=== PATIENT | female | born 1990 | race Caucasian/White ===

== ENCOUNTER 2019-02-13 08:47 | Inpatient (IN) | payer OTHER ==
[~2019-02-13] VITALS: Ht 167.6 cm; Wt 73.8 kg
[2019-02-13] VITALS (26 sets, daily range): BP systolic 95–132; BP diastolic 50–80
[2019-02-13] MEDS ORDERED: PRENTAB9 PO (09:10)
[2019-02-13] MEDS ORDERED: LR 1,000 ML IV SCH (10:22)
[2019-02-13] MEDS ORDERED: LACTATED RINGER'S 1000 ML IV STA (10:22)
--- NOTE | 2019-02-13 10:32 | HPEPDOC ---
Obstetrical History & Physical General Date of Admission Feb 13, 2019 at 10:21 History of Present Illness 28 y/o at 40+3 with painful irreg ctx's and VB since last night. Has been mucousy. Not overly heavy. No lof. Pos FM. Transferred here from [facility] at 31 weeks. 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 pertinent history Past Medical History Medical History denies Surgical History: Denies/None Family History Significant Family History: No pertinent family hx Social History Marital Status: Family situation: Spouse/partner home Psychosocial History: No pertinent psych hx * Smoker: non-smoker Alcohol: Denies Drugs: denies Abuse Violence Screening Have you been hit/kicked/slapp: No Have you been sexually assault: No Imunizations Tdap status: current Influenza Status: current Allergies Coded Allergies: No Known Allergies (Unverified , 02/13/19) Medications Scheduled No.137/Iron/Folic Acd ( Vitamin Tablet) 1 Each Tablet, 1 TAB PO DAILY Physical Examination Physical Examination GENERAL: Alert and oriented times three. ABDOMEN: Gravid and non-tender to touch. FETUS: Is vertex (VTX) by sterile vaginal examination (SVE), 3-4/90/-1/vtx well applied EXTREMITIES: No edema. Vital Signs/I&O Vital Signs Date Time Temp Pulse Resp B/P (MAP) Pulse Ox O2 Delivery O2 Flow Rate FiO2 02/13/19 09:06 98.4 89 18 112/79 (90) Laboratory Data Urine Culture: Contaminated Pertinent Laboratoy Data Blood Type: A+ RBC Antibody Screen: Negative HIV: Negative Hepatitis B: Negative Hepatitis C: Unknown Rapid Plasma Reagin: Nonreactive Rubella: Immune Varicella: Immune Chlamydia/Gonorrhea: Negative Group B Streptococcus: Negative Quad Screen Test: Unknown Cystic Fibrosis: Negative Glucose Tolerance Test: 138 Anatomy Ultrasound Placenta Location: Posterior Normal Anatomy: Yes Placenta Previa: No Assessment Variability: Moderate Accelerations: Positive Decelerations: Late (x1, was on her back. None before and none after. Pos accels and mod katie present throughout.) Tocometer Contractions: Yes Frequency: irregular, every 3-7 min. Duration: greater than 60 seconds Strength: palpated as moderate Assessment/Plan Assessment 40+3. very likely labor as was 1/thick 2 days ago. Bloody show present. Will keep and check in ~4 hrs and if no change or ctx'd don't become more regular may need pitocin augmentation. Plan Admit and orient. 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 Diet: clears except will allow lunch today Group B Streptococcus (GBS) negative Labs and intravenous (IV) per unit protocol. Counseled on Pitocin and induction of labor (IOL). Lactated Ringers (LR): Bolus 1000 mL, then at 125 mL/hr. Anticipate normal spontaneous delivery () C-S as appropriate. Sessions SESSIONS,NATALY Rosales MD Feb 13, 2019 10:32
[2019-02-13 11:37] LABS: HEMATOCRIT 37.3 % (36.0-47.0); HEMOGLOBIN 12.7 g/dl (12.0-15.5); MEAN CORPUSCULAR HEMOGLOBIN 30.7 pg (27.0-33.0); MEAN CORPUSCULAR VOLUME 90.1 fl (80.0-96.0); PLATELET COUNT, AUTOMATED 278 10^3/uL (150-450); RED BLOOD COUNT 4.14 10^6/uL (4.00-5.40); WHITE BLOOD COUNT 9.2 10^3/uL (4.0-10.0)
[2019-02-13] MEDS ORDERED: FENTANYL 2MCG/ML ROPIVACAINE 0.2% IN 0.9% NACL 100ML IVBAG As Ordered ONE (15:37)
[2019-02-13] MEDS ORDERED: EPIDURAL COMMENT XX SCH (17:30)
[2019-02-13] MEDS ORDERED: FENTANYL/ROPIVACAINE/NACL BAG 100 ML EPIDURAL SCH (17:30)
[2019-02-13] MEDS ORDERED: ONDANSETRON 4MG/2ML VIAL (J2405) IV PRN (17:30)
[2019-02-13] MEDS ORDERED: ePHEDrine SULFATE 25 MG/5 ML(5MG/ML) SYRINGE IV PRN (17:30)
[2019-02-13] MEDS ORDERED: NALOXONE INJ 0.4 MG/1 ML VIAL (J2310) IV PRN (17:30)
[2019-02-13] MEDS ORDERED: REFRIGERATOR IV KEYS XX PRN (17:30)
[2019-02-13] MEDS ORDERED: EPIDURAL/PCA KEYS XX PRN (17:30)
[2019-02-13] MEDS ORDERED: diphenhydrAMINE INJ 50MG/ML VIAL (J1200) IV PRN (17:30)
[2019-02-13] MEDS ORDERED: OXYTOCIN 30 UNITS IN 0.9% NaCl 500ML IV BAG (J2590) As Ordered ONE (19:26)
--- NOTE | 2019-02-13 19:37 | IPNPDOC ---
Text Note Date of Service The patient was seen on 02/13/19. NOTE I have been getting reg reports all day, at 1700 was 4-5 cm per RN, 1800 had SROM, clr. Cx c/c/+2/ANUJ, start pushing FHT Cat 1 Sessions VS,Ximena, I+O VS, Ximena, I+O Laboratory Tests 02/13/19 11:12 Red Blood Count 4.14, Mean Corpuscular Volume 90.1, Mean Corpuscular Hemoglobin 30.7, Mean Corpuscular Hemoglobin Concent 34.0, Red Cell Distribution Width 13.4 Vital Signs Date Time Temp Pulse Resp B/P (MAP) Pulse Ox O2 Delivery O2 Flow Rate FiO2 02/13/19 18:26 92 113/65 (81) 02/13/19 17:38 98.8 18 02/13/19 12:10 98 SESSIONS,NATALY Rosales MD Feb 13, 2019 19:37
[2019-02-13] MEDS ORDERED: OXYTOCIN DRIP 30 UNITS in APPROPRIATE DILUENT 1 EA IV SCH (20:29)
[2019-02-13] MEDS ORDERED: MEASLES,MUMPS,RUBELLA VACCINE INJ (MMR-II) (90707) SC SCH (20:30)
[2019-02-13] MEDS ORDERED: RHOGAM 300 MCG (1500 IU) INJ (J2790) IM SCH (20:30)
[2019-02-13] MEDS ORDERED: METOCLOPRAMIDE INJ 10MG/2ML VIAL (J2765) IV PRN (20:30)
[2019-02-13] MEDS ORDERED: ACETAMINOPHEN TAB 650MG DOSE (2X325MG) PO PRN (20:30)
[2019-02-13] MEDS ORDERED: DIBUCAINE 1% OINTMENT 30GM TOP PRN (20:30)
[2019-02-13] MEDS: DOCUSATE SODIUM 100 MG CAP PO SCH (22:30)
[2019-02-14 05:14] VITALS: BP 106/57
--- NOTE | 2019-02-14 06:49 | IPNPDOC ---
Text Note Date of Service The patient was seen on 02/14/19. NOTE PPD1 States feeling well, pain controlled with prescribed meds. Baby bonding and feeding well. No heavy VB. Lochia slowing. Ambulatory. Tolerating PO without issues. Voiding spont. No CP/LP/SOB. VSSAF NAD A&O LE no C/C/E Ut at U-2, firm a/p: Doing well. Cont routine care. D/C today. Sessions Ximena PETERSEN, I+O VSXimena I+O Laboratory Tests 02/13/19 11:12 Red Blood Count 4.14, Mean Corpuscular Volume 90.1, Mean Corpuscular Hemoglobin 30.7, Mean Corpuscular Hemoglobin Concent 34.0, Red Cell Distribution Width 13.4 Vital Signs Date Time Temp Pulse Resp B/P (MAP) Pulse Ox O2 Delivery O2 Flow Rate FiO2 02/14/19 05:14 98.7 82 18 106/57 (73) 02/13/19 22:37 99 I&O- Last 24 Hours up to 6 AM 02/14/19 06:00 Intake Total 1900 ml Output Total 650 ml Balance 1250 ml SESSIONS,NATALY Rosales MD Feb 14, 2019 06:49
[2019-02-14] MEDS: DOCUSATE SODIUM 100 MG CAP PO SCH ×2 (08:55→20:09)
[2019-02-14] MEDS: PRENATAL VITAMINS CHEWABLE TABLET PO SCH (08:55)
[2019-02-14] MEDS: IBUPROFEN 800 MG TAB PO PRN (08:56)
[2019-02-14 09:16] VITALS: BP 112/57
[2019-02-14 18:27] VITALS: BP 105/57
[2019-02-15 06:00] VITALS: BP 104/55
[2019-02-15] MEDS: DOCUSATE SODIUM 100 MG CAP PO SCH (08:33)
[2019-02-15] MEDS: PRENATAL VITAMINS CHEWABLE TABLET PO SCH (08:33)
[2019-02-15] MEDS: IBUPROFEN 800 MG TAB PO PRN (08:34)
[2019-02-15] MEDS ORDERED: IBUP-1114 PO (11:04)
[2019-02-15] MEDS ORDERED: COLA100C5 PO (11:04)
[2019-02-15] MEDS ORDERED: MAPA500T2 PO (11:04)
--- NOTE | 2019-02-15 12:17 | DNPDOC ---
[facility] Delivery Note Delivery Note I COPIED THIS NOTE FROM THE CHART OF ANOTHER PATIENT, WHERE IT HAD BEEN ENTERED IN ERROR. THIS NOTE WAS WRITTEN BY DR. CASAREZ AND IS NOT EDITED IN ANY WAY BY ME. -Dr. Anne Jones MD DATE OF DELIVERY: [id number] PREDELIVERY DIAGNOSIS: 40 3/7 weeks' gestation and labor. POST DELIVERY DIAGNOSIS: Delivered. PROCEDURE: Spontaneous vaginal delivery CARTON FORMING MACHINE TENDER: Dr. Casarez ANESTHESIA: epidural ESTIMATED BLOOD LOSS: 400 mL. FINDINGS: 8 pound 9 ounce female , Score 9/9, nuchal cord times 1, loose DELIVERY SUMMARY: Great effort, pushed ~30 min. No delay of the vtx or the ant left shoulder. Del'd ANUJ to LOT. Vigorous infant to abd. Cord C/C by FOB. Cord blood. Placenta intact. Fundus firm, pit going 999. 1st degr lac repaired with 3-0 vicryl. Small vessel with a brisk bleed stopped, watched for several minutes, no hematoma. Good cosmesis/hemostasis. Uncomplicated. Anne Orosco MD, MD Feb 15, 2019 12:17
--- NOTE | 2019-02-15 12:23 | IPNPDOC ---
Progress Note Date of Service: Feb 15, 2019 Day#: 2 Progress Note PPD 2 SUBJECT: Clare is a 28yo [id number] s/p uncomplicated at 40w3d after presenting in active labor, delivering at 20:07 on 02/13 with a 1mll and repair, doing well day # 2. She has been ambulating, voiding spontaneously without issue and tolerating regular diet. Breast feeding without issue. Reports lochia is like a normal period. No f/c/n/v/CP/SOB. OBJECTIVE: VITAL SIGNS: Within normal limits, normotensive, afebrile. Alert and oriented times three. Abdomen: Fundus firm at U-2. Soft, NTTP. Extremities: no pain with palpation of calves ASSESSMENT: Clare is a 28yo [id number] s/p uncomplicated at 40w3d after presenting in active labor, delivering at 20:07 on 02/13 with a 1mll and repair, doing well day # 2. Vitals within normal limits, afebrile, hemodynamically stable with no evidence of infection. PLAN: 1. Discharge to home today. 2. Tylenol and Motrin for pain. Lanolin, colace, minipill. 3. Encourage breast feeding and ambulation. 4. Minipill for contraception 5. Routine PP visit in 6 weeks in clinic. 6. Discussed return precautions at length. Dr. Anne Jones MD VS, I&O, 24H, Fishbone Vital Signs/I&O Vital Signs Date Time Temp Pulse Resp B/P (MAP) Pulse Ox O2 Delivery O2 Flow Rate FiO2 02/15/19 06:00 98.0 72 17 104/55 (71) 02/14/19 09:16 99 Anne Jones MD Feb 15, 2019 12:23
== END 2019-02-15 12:50 | disposition home or self-care (01) | DRG 807 ==
LOC: M LDO 08:47 → M LDI 10:21 → M OBS 22:20
PROVIDERS: ADMIT Obstetrics & Gynecology; ATTEND Obstetrics & Gynecology
PROC: 10E0XZZ Delivery of Products of Conception, External Approach (ICD-10-PCS; principal; 2019-02-13)
PROC: 0HQ9XZZ Repair Perineum Skin, External Approach (ICD-10-PCS; 2019-02-13)
DX: O48.0 Post-term pregnancy (principal); Z37.0 Single live birth; Z3A.40 40 weeks gestation of pregnancy; O70.0 First degree perineal laceration during delivery; O69.81X0 Labor and delivery complicated by cord around neck, without compression, not applicable or unspecified

== ENCOUNTER 2021-04-02 07:17 | Inpatient (IN) | payer OTHER ==
[~2021-04-02] VITALS: Ht 167.6 cm; Wt 74.1 kg
[2021-04-02] VITALS (34 sets, daily range): BP systolic 105–127; BP diastolic 54–79
[~2021-04-02 07:17] MED LIST: COLA100C5 PO; IBUP-1114 PO; MAPA500T2 PO; PRENTAB9 PO
[2021-04-02 08:26] LABS: HEMATOCRIT 37.1 % (36.0-47.0); HEMOGLOBIN 12.4 g/dl (12.0-15.5); MEAN CORPUSCULAR HEMOGLOBIN 30.9 pg (27.0-33.0); MEAN CORPUSCULAR HGB CONC 33.4 g/dl (32.0-36.5); MEAN CORPUSCULAR VOLUME 92.5 fl (80.0-96.0); PLATELET COUNT, AUTOMATED 244 10^3/uL (150-450); RED BLOOD COUNT 4.01 10^6/uL (4.00-5.40); WHITE BLOOD COUNT 9.3 10^3/uL (4.0-10.0)
--- NOTE | 2021-04-02 10:43 | HPEPDOC ---
Obstetrical History & Physical General Date of Admission April 02, 2021 at 07:17 History of Present Illness 30yo arabella [id number] @41+0 Chief Complaint: Induction of labor Information Provided By: Patient Age: 30 : 2 Term: 1 Pre-term: 0 Abortions: 0 Livin Care Care: Good Care Dating Final EDC: March 26, 2021 Final EDC for Daily Update: March 26, 2021 Final EDC by: LMP LMP: Jun 19, 2020 EGA at Admission: 41 Antepartum Course Diagnos(e)s anxiety Height (inches): 66 Pre- weight (lbs.): 125 Admission Weight (lbs.): 158 Change in Weight (lbs.): 33 Past Medical History Past Obstetrical History : Past Obstetrical History: Multigravida Date of Delivery: Feb 13, 2019 Gestation: 41 Type of Delivery: Spontaneous Vaginal Del. 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, family at home Marital Status: Psychosocial History: Anxiety * Smoker: non-smoker Alcohol: Denies Drugs: denies Abuse Violence Screening Have you been hit/kicked/slapp: No Have you been sexually assault: No Imunizations Tdap status: current Influenza Status: current Allergies Coded Allergies: Chickpea (Verified Allergy, Severe, 04/02/21) Pea (Verified Allergy, Severe, 04/02/21) legumes (Verified Allergy, Severe, 04/02/21) soy (Verified Allergy, Severe, 04/02/21) Medications Scheduled Docusate Sodium (Colace) 100 Mg Capsule, 100 MG PO DAILY No.137/Iron/Folic Acd ( Vitamin Tablet) 1 Each Tablet, 1 TAB PO DAILY Physical Examination Physical Examination GENERAL: Alert and oriented times three. BREAST: . ABDOMEN: Gravid and non-tender to touch. FETUS: Is vertex (VTX) by sterile vaginal examination (SVE), fetus is vertex (VTX) by Agusto. HEART RATE: Regular rate and rhythm. LUNGS: Clear to auscultation (CTA). EXTREMITIES: No edema. No clonus. Deep tendon reflexes (DTRs) + 2. Vital Signs/I&O Vital Signs Date Time Temp Pulse Resp B/P (MAP) Pulse Ox O2 Delivery O2 Flow Rate FiO2 04/02/21 09:42 81 18 120/59 (79) 04/02/21 08:21 98.0 Laboratory Data 24H LABS Laboratory Tests 2 04/02/21 07:30: Serology Scanned Report Hepatitis B Testing 04/02/21 07:58: Nucleated Red Blood Cells % (auto) 0.0 CBC/BMP Laboratory Tests 04/02/21 07:58 Pertinent Laboratoy Data Blood Type: A+ RBC Antibody Screen: Negative HIV: Negative Hepatitis B: Negative Rapid Plasma Reagin: Nonreactive Rubella: Immune Varicella: Immune Chlamydia/Gonorrhea: Negative Group B Streptococcus: Negative Cystic Fibrosis: Negative Glucose Tolerance Test: 170 (88/146/97/76) Anatomy Ultrasound Ultrasound Date: Nov 10, 2020 Placenta Location: Anterior Normal Anatomy: Yes Placenta Previa: No Vaginal Examination Dilation: 2cm (80/70 cervical catheter placed easily with exam) Effacement: 70% Station: -2 Cervical Consistency: Medium Cervical Position: Middle Presentation: Cephalic presentation Assessment Heart Rate (FHR): 125 Variability: Moderate Accelerations: Positive Decelerations: None Tocometer Contractions: Yes Frequency: irregular Duration: less than 60 seconds Strength: palpated as mild, resting tone palp/soft Multi-drug resistant Organism: No history of MDRO Assessment/Plan Assessment Clare is a 30-year-old (G)2 para (P)1 at 41+0 weeks by 11+0-week ultrasound. Presents to Labor and Delivery (L&D) for IOL. Plan Admit and orient. 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 Diet: regular. Group B Streptococcus (GBS) negative. Labs and intravenous (IV) per unit protocol. Counseled on Pitocin and induction of labor (IOL) and cervical ripening with Bard catheter. Saline lock. Anticipate normal spontaneous delivery (). C-S as appropriate. ALEJO WEINER CNM April 02, 2021 10:43
[2021-04-02] MEDS ORDERED: OXYTOCIN DRIP 30 UNITS in IV 1 EA IV SCH (10:45)
--- NOTE | 2021-04-02 10:50 | IPNPDOC ---
Obstetrical Progress Note Date of Service April 02, 2021 Subjective Pt states that cervical catheter came out spontaneously in the bathroom, states irregular cramping. Objective Vital Signs Date Time Temp Pulse Resp B/P (MAP) Pulse Ox O2 Delivery O2 Flow Rate FiO2 04/02/21 09:42 81 18 120/59 (79) 04/02/21 08:21 98.0 Assessment Heart Rate (FHR): 145 (prior to OOB to BR) Variability: Moderate Accelerations: Positive Decelerations: None Heart Rate Tracing: Category I Tocometer Contractions: Yes Frequency: irregular Strength: palpated as mild, resting tone palp/soft Assessment and Plan Age: 30 : 2 Term: 1 Pre-term: 0 Abortions: 0 Livin EGA at Admission: 41 Status: Reassuring Group B Streptococcus: Negative Anticipate: Vaginal Delivery Additional Comments 30yo arabella [id number] @41+0, A+, GBS-, admitted for LTG IOL Reviewed consents for Pitocin induction, pt confirmed consent LR @125ml/hr, continuous efm x2, initiate pitocin induction and titrate per protocol, monitor for change in or maternal status, evaluate for dilation as indicated, consider AROM when appropriate, anticipate vaginal delivery ALEJO WEINER CNM April 02, 2021 10:50
[2021-04-02] MEDS: LR 1,000 ML IV SCH ×2 (11:16→18:28)
[2021-04-02] MEDS ORDERED: LR 1,000 ML IV SCH (16:40)
[2021-04-02] MEDS ORDERED: LACTATED RINGER'S 1000 ML IV ONE (17:00)
--- NOTE | 2021-04-02 17:01 | IPNPDOC ---
Text Note Date of Service Item Value Date Time White Blood Count 9.3 10^3/uL 04/02/21 0758 Red Blood Count 4.01 10^6/uL 04/02/21 0758 Hemoglobin 12.4 g/dl 04/02/21 0758 Hematocrit 37.1 % 04/02/21 0758 Mean Corpuscular Volume 92.5 fl 04/02/21 0758 Mean Corpuscular Hemoglobin 30.9 pg 04/02/21 0758 Mean Corpuscular Hemoglobin Concent 33.4 g/dl 04/02/21 0758 Red Cell Distribution Width 13.2 % 04/02/21 0758 Platelet Count 244 10^3/uL 04/02/21 0758 The patient was seen on 04/02/21. NOTE 04/02/2021 REVIEW OF PROGRESS . CONTRACTIONS Q 5 MODERATE ARRIOLA'S CATHETER FELL OUT EXAMINATION CERVIX POSTERIOR 2 -3 CM SOFT THICK SHOW NOTED OCCASIONAL LATE WITH IMMEDIATE RECOVERY. PLAN IS TO HAVE EPIDURAL, AROM ANTICIPATE VS,Fishbone, I+O VS, Fishbone, I+O Laboratory Tests 04/02/21 07:58 Vital Signs Date Time Temp Pulse Resp B/P (MAP) Pulse Ox O2 Delivery O2 Flow Rate FiO2 04/02/21 16:24 80 18 110/64 (79) 04/02/21 14:17 98.6 Jamaal Mera MD April 02, 2021 17:00
[2021-04-02] MEDS ORDERED: FENTANYL 2MCG/ML ROPIVACAINE 0.2% IN 0.9% NACL 100ML IVBAG As Ordered ONE (17:26)
[2021-04-02] MEDS ORDERED: EPIDURAL/PCA KEYS XX PRN (17:45)
[2021-04-02] MEDS ORDERED: NALOXONE INJ 0.4MG/1ML VIAL (J2310 PER 1MG) IV PRN (17:45)
[2021-04-02] MEDS ORDERED: EPIDURAL COMMENT XX SCH (17:45)
[2021-04-02] MEDS ORDERED: ONDANSETRON 4MG/2ML VIAL IV PRN (17:45)
[2021-04-02] MEDS ORDERED: diphenhydrAMINE 50MG/ML VIAL (J1200) IV PRN (17:45)
[2021-04-02] MEDS ORDERED: FENTANYL/ROPIVACAINE/NACL BAG 100 ML EPIDURAL SCH (17:45)
[2021-04-02] MEDS ORDERED: REFRIGERATOR IV KEYS XX PRN (17:45)
[2021-04-02] MEDS ORDERED: LACTATED RINGER'S 1000 ML IV PRN (18:35)
[2021-04-02] MEDS ORDERED: ePHEDrine SULFATE 25 MG/5 ML(5MG/ML) SYRINGE IV PRN (18:35)
--- NOTE | 2021-04-02 18:53 | IPNPDOC ---
Text Note Date of Service The patient was seen on 04/02/21. NOTE Item Value Date Time White Blood Count 9.3 10^3/uL 04/02/21 0758 Red Blood Count 4.01 10^6/uL 04/02/21 0758 Hemoglobin 12.4 g/dl 04/02/21 0758 Hematocrit 37.1 % 04/02/21 0758 Mean Corpuscular Volume 92.5 fl 04/02/21 0758 Mean Corpuscular Hemoglobin 30.9 pg 04/02/21 0758 Mean Corpuscular Hemoglobin Concent 33.4 g/dl 04/02/21 0758 Red Cell Distribution Width 13.2 % 04/02/21 0758 Platelet Count 244 10^3/uL 04/02/21 0758 04/02/2021 1850 pm assessment post epidural. category 1 strip patient comfortable Pitocin at 10 munits cervix posterior soft -2 station ot stretchy 3 cm plan arom clear liquor moderate polyhydramnios safe to proceed VS,Fishbone, I+O VS, Fishbone, I+O Laboratory Tests 04/02/21 07:58 Vital Signs Date Time Temp Pulse Resp B/P (MAP) Pulse Ox O2 Delivery O2 Flow Rate FiO2 04/02/21 18:11 80 107/65 (79) 04/02/21 16:24 18 04/02/21 14:17 98.6 Jamaal Mera MD April 02, 2021 18:52
[2021-04-02 20:16] LABS: CORD GAS ABE A -1.8; CORD GAS HCO3 A 22.9 MEQ/L; CORD GAS HCO3 V 21.6 MEQ/L; CORD GAS O2 SAT A 80.7 %; CORD GAS O2 SAT V 82.2 %; CORD GAS PCO2 A 39.1 mmHg; CORD GAS PCO2 V 37.2 mmHg; CORD GAS PH A 7.386 UNITS; CORD GAS PH V 7.381 UNITS; CORD GAS PO2 A 35.7 mmHg; CORD GAS PO2 V 37.1 mmHg; CORD GAS SBC A 22.6 MEQ/L; CORD GAS SBC V 21.6 MEQ/L; CORD GAS TCO2 A 24.1 MEQ/L; CORD GAS TCO2 V 22.7 MEQ/L
[2021-04-02] MEDS ORDERED: ANUSOL HC CREAM 30GM TOP PRN (20:20)
[2021-04-02] MEDS ORDERED: MEASLES,MUMPS,RUBELLA VACCINE INJ (MMR-II) (90707) SC SCH (20:20)
[2021-04-02] MEDS ORDERED: RHOGAM 300 MCG (1500 IU) INJ (J2790) IM SCH (20:20)
[2021-04-02] MEDS ORDERED: METHYLERGONOVINE MALEATE 0.2 MG TAB PO PRN (20:20)
[2021-04-02] MEDS ORDERED: MOM 30ML SUSPENSION UDC PO PRN (20:20)
[2021-04-02] MEDS ORDERED: IBUPROFEN 600MG TAB PO PRN (20:20)
[2021-04-02] MEDS ORDERED: OXYTOCIN INJ 10 UNITS/ML VIAL (J2590) IV ONE (20:20)
[2021-04-02] MEDS ORDERED: ACETAMINOPHEN TAB 650MG DOSE (2X325MG) PO PRN (20:20)
[2021-04-02] MEDS ORDERED: DIBUCAINE 1% OINTMENT 30GM TOP PRN (20:20)
[2021-04-02] MEDS ORDERED: OXYTOCIN DRIP 30 UNITS in IV 1 EA IV ONE (20:20)
--- NOTE | 2021-04-02 20:39 | DNPDOC ---
[facility] Delivery Note Delivery Note DATE OF DELIVERY: 04/02/2021 PREDELIVERY DIAGNOSIS: 41 weeks gestation iol POST DELIVERY DIAGNOSIS: Delivered. PROCEDURE: [Spontaneous vaginal delivery . REPAIRER CYLINDER HEADS: Dr.E MARSHALL ANESTHESIA: EPIDURAL. ESTIMATED BLOOD LOSS: 200 mL. FINDINGS: 9 pound 7 ounce MALE , 4290 GRAMS Score 8/9 , nuchal cord times 0 DELIVERY SUMMARY: Patient is a 30 -year-old 2 now para 2 who was admitted to labor and delivery for IOL HAD EPIDURAL AROM POLYHYDRAMNIOS HAD MALE INFANT UNEVENTFUL FIRST DEGREE TEAR REPAIRED UTERUS CONTRACTED WITH PITOCIN REST OF VAGINA ANTERIOR POSTERIOR BAILEY INTACT SPHINCTER INTACT Jamaal Marshall MD April 02, 2021 20:39
[2021-04-02] MEDS: ACETAMINOPHEN 500 MG TAB PO PRN (22:19)
[2021-04-03] MEDS: ACETAMINOPHEN 500 MG TAB PO PRN ×2 (04:07→16:45)
[2021-04-03 06:00] VITALS: BP 111/56
[2021-04-03 07:06] LABS: HEMOGLOBIN 11.2 g/dl (12.0-15.5); MEAN CORPUSCULAR HEMOGLOBIN 30.7 pg (27.0-33.0); MEAN CORPUSCULAR HGB CONC 32.9 g/dl (32.0-36.5); MEAN CORPUSCULAR VOLUME 93.2 fl (80.0-96.0); PLATELET COUNT, AUTOMATED 192 10^3/uL (150-450); RED BLOOD COUNT 3.65 10^6/uL (4.00-5.40); WHITE BLOOD COUNT 10.6 10^3/uL (4.0-10.0)
[2021-04-03] MEDS: PRENATAL VITAMINS CHEWABLE TABLET PO SCH (08:02)
[2021-04-03] MEDS: DOCUSATE SODIUM 100MG CAPSULE PO PRN ×2 (08:16→20:08)
--- NOTE | 2021-04-03 10:27 | IPN ---
PROGRESS NOTE DATE: 04/03/2021 SUBJECTIVE: day one. This lady is a 30-year-old 2 now para 2, admitted for induction of labor at 41 weeks gestation[address]. Spontaneous vaginal delivery of a male, 9 pounds 2 ounces (4290) grams. Apgars 8 and 9 at one and five minutes respectively. Arterial pH 7.36, base excess -1.8; venous pH 7.3, base excess -3.0. She had a first-degree tear, which was repaired in the usual fashion. On her first day, we discussed phlebitis, cystitis, mastitis, endometritis, cellulitis, diet, exercise, pain management; perineal and breast care. OBJECTIVE: The rest of examination is unremarkable. Normocephalic, atraumatic. Neck with full range of motion. Pupils equal and reactive to light. Distal pulses symmetric. No evidence of DVT, PE, or superficial phlebitis. Chest is clear bilateral bases with no wheezes or rhonchi. No CVA tenderness. Abdomen is soft. Four quadrant bowel sounds are noted. Uterus is 2 below. Lochia is moderate. No rashes, lesions, or pruritus. No arthralgias or myalgias. No complaint of joint pain. No complaint of cough, wheeze, shortness of breath, or dyspnea on exertion. No nausea, vomiting, diarrhea, or constipation. No urgency or frequency. Blood pressure today is 111/56, respirations 18, pulse 79, temperature 97.9. LABORATORY DATA: Admitting hemoglobin was 12.4, hematocrit 37.1, and platelets 244,000. ASSESSMENT AND PLAN: We have a term gestation delivering a live male at 41 weeks of gestation. The plans are to do circumcision of her male infant today. Discharge plans are for tomorrow. Medications to be picked up at [place]. Six week checkup at [facility]. Minipill to be dispensed at that time. All questions were answered, 20 minute discussion.
[2021-04-03 18:00] VITALS: BP 107/57
[2021-04-04 06:00] VITALS: BP 112/68
[2021-04-04] MEDS ORDERED: IBUP-1022 PO (07:34)
--- NOTE | 2021-04-04 07:49 | OBDS ---
[facility] Obstetrical Discharge Sum. Obstetrical Discharge Summary Weight Clerk/Provider: Jamaal Mera MD Date: April 04, 2021 Time: 09:00 : 2 Term: 2 Pre-term: 0 Abortions: 0 Livin VDRL: Non-Reactive Rh: Positive Rubella: Immune Labor IOL AT 41 WEEKS EPIDURAL AROM POLYHYDRAMNIOS MALE 9LBS 7 OZ FIRST DEGREE REPAIRED . PLACENTA COMPLETE Infant Sex: Male Infant Weight: pounds (9), ounces (7), grams (4290) Anesthesia: Regional Anesthesia Episiotomy FIRST DEGREE A/P, Post Course List any complications Admission diagnosis: .I0L 41 WEEKS Discharge diagnosis: CONFINED Condition at Discharge: STABLE Discharge Instructions: [Home/other] 6 WEEK PP CHECK FT [facility] Activity: ATT Diet: ANASTASIIA Medications: MEDS AT [place] Follow-up: 6 WEEK FT [facility] Other: Jamaal Mera MD April 04, 2021 07:40
[2021-04-04] MEDS: PRENATAL VITAMINS CHEWABLE TABLET PO SCH (08:35)
--- NOTE | 2021-04-04 10:37 | DSES ---
DISCHARGE SUMMARY DATE OF ADMISSION: 04/02/2021 DATE OF DISCHARGE: 04/04/2021 BRIEF HISTORY: 30-year-old 2, now para 2 admitted for induction of labor at 41 weeks, had epidural in place. Spontaneous vaginal delivery of male , 9 pounds 2 ounces, 4290 grams, Apgars of 8 and 9 at 1 and 5 minutes respectively. Arterial pH 7.36, base excess -1.8, venous pH 7.38, base excess -3.0. Her only risk factor was she had polyhydramnios. On discharge we discussed phlebitis, cystitis, mastitis, endometritis, cellulitis, diet, exercise, pain management, perineal, breast and wound care. 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 Six week checkup at [facility]. Minipill is requested for control. All questions are answered, 20 minute discussion. We await clearance by the inspector screen printing for discharge. cc: [facility] MTDD
--- NOTE | 2021-04-05 09:39 | IPN ---
PROGRESS NOTE DATE: 04/02/2021 SUBJECTIVE: This patient requested circumcision of her male infant. After discussing risks and benefits of circumcision, the medical, the nonmedical indications, the penile block and aftercare, expressed understanding of penile block aftercare and bleeding, signed the consent form. All questions were answered. Twenty minute discussion. We await clearance by the machine pecan gatherer.
== END 2021-04-04 13:45 | disposition home or self-care (01) | DRG 807 ==
LOC: M LDI 07:17 → M OBS 22:26
PROVIDERS: ADMIT Registered Nurse; ATTEND Obstetrics & Gynecology
PROC: 10E0XZZ Delivery of Products of Conception, External Approach (ICD-10-PCS; principal; 2021-04-02)
PROC: 0HQ9XZZ Repair Perineum Skin, External Approach (ICD-10-PCS; 2021-04-02)
PROC: 3E033VJ Introduction of Other Hormone into Peripheral Vein, Percutaneous Approach (ICD-10-PCS; 2021-04-02)
PROC: 10907ZC Drainage of Amniotic Fluid, Therapeutic from Products of Conception, Via Natural or Artificial Opening (ICD-10-PCS; 2021-04-02)
DX: O48.0 Post-term pregnancy (principal); Z37.0 Single live birth; Z3A.41 41 weeks gestation of pregnancy; O40.3XX0 Polyhydramnios, third trimester, not applicable or unspecified; O70.0 First degree perineal laceration during delivery